=== PATIENT | female | born 1995 | race Caucasian/White ===

== ENCOUNTER → 2016-06-07 | Outpatient (CLI) | payer BC | END | disposition home or self-care (01) | LOC: MW.CHOBGYN 14:21 | PROVIDERS: ATTEND Obstetrics & Gynecology | DX: Z34.90 Encounter for supervision of normal pregnancy, unspecified, unspecified trimester (principal) | CPT/HCPCS: 81003 ==

== ENCOUNTER → 2016-07-05 | Outpatient (CLI) | payer BC ==
--- NOTE | 2016-07-05 17:11 | US ---
Examination: Greater than 14 weeks transabdominal ultrasound with color Doppler and M-mode evaluatio n. HISTORY: FINDINGS: LMP is 02/28/2016 EVALUATION: Anterior placenta with a breech lie and grade 1. Visually amniotic fluid is within normal limits. Three-vessel cord is seen. Ventricles are within normal limits. Nuchal fold thickness is 3 mm. Four chamber heart is noted. Heart rate is 148 beats per minute. BIOMETRY AND GESTATIONAL AGE: Biparietal diameter 3.9 cm. The abdominal circumference measures 12 cm. The femoral length is 2.5 cm with head circumference of 14.4 cm. Gestational age is 17 weeks and 4 days. The expected date of de livery is approximately 12/09/2016. Fetus weight is 205 grams. Overall the fetus is within the 14th percentile. Other detail anatomy summarized into PACs sheet after the images. No anatomical anomalies. IMPRESSION: Single active IU with breech fetus. Anterior placenta with grade 1, no placenta previa. No anomalies are seen. Amniotic fluid appears within normal limits.
== END ==
LOC: MW.US 13:00
PROVIDERS: ATTEND Obstetrics & Gynecology
DX: Z34.92 Encounter for supervision of normal pregnancy, unspecified, second trimester (principal); Z3A.17 17 weeks gestation of pregnancy
CPT/HCPCS: 36415; 76805; 76805-26; 81003; 82105; 82677; 84702; 85027; 86336; 86592; 86762; 86850; 86900; 86901; 87086; 87340; 87389

== ENCOUNTER → 2016-08-02 | Outpatient (CLI) | payer BC | LOC: MW.CHOBGYN 13:18 | PROVIDERS: ATTEND Obstetrics & Gynecology | DX: Z34.90 Encounter for supervision of normal pregnancy, unspecified, unspecified trimester (principal) | CPT/HCPCS: 81003 ==

== ENCOUNTER 2016-12-04 23:11 | Inpatient (IN) | payer BC ==
[2016-12-04] MEDS ORDERED: Lactated Ringers 1,000 ML IV SCH (23:45)
[2016-12-04] MEDS ORDERED: Oxytocin/Lactated Ringers 30 UNIT/500 ML BAG IV SCH (23:45)
[2016-12-04] MEDS ORDERED: Nalbuphine 10 MG/1 ML Vial IVPUSH PRN (23:55)
[2016-12-04] MEDS ORDERED: Butorphanol 1 MG/ML SDV IVPUSH PRN (23:55)
[2016-12-04] MEDS ORDERED: Water For Irrigation,Sterile 1,000 ML Container IRR PRN (23:55)
[2016-12-04] MEDS ORDERED: Carboprost Tromethamine 250 MCG/1 ML Amp IM PRN (23:55)
[2016-12-04] MEDS ORDERED: Misoprostol 200 MCG Tab PO PRN (23:55)
[2016-12-04] MEDS ORDERED: Sodium Chloride 0.9% 2.5 ML Syringe FLUSH PRN (23:55)
[2016-12-04] MEDS ORDERED: Methylergonovine 0.2 MG/1 ML Amp IM PRN (23:55)
[2016-12-04] MEDS ORDERED: Sodium Chloride 0.9% 10 ML Syringe FLUSH PRN (23:55)
[2016-12-04] MEDS ORDERED: Lidocaine 1% 50 ML MDV INJECT PRN (23:55)
[2016-12-05] MEDS ORDERED: ePHEDrine 50 MG/ML SDV ONE (00:59)
[2016-12-05] MEDS ORDERED: fentaNYL 100 MCG/2 ML SDV ONE (00:59)
[2016-12-05] MEDS ORDERED: Ropivacaine HCl/PF 0 ML ONE (01:00)
[2016-12-05] MEDS ORDERED: Ropivacaine 0.2% 2 MG/ML 100 ML Bag EPIDUR ONE (01:00)
[2016-12-05] MEDS ORDERED: Ropivacaine 0.2% 2 MG/ML 20 ML SDV ONE (01:00)
--- NOTE | 2016-12-05 01:05 | PCM.LDHP ---
L&D History of Present Illness - General Date of Service: 12/05/16 Admit Problem/Dx: Patient Status Order with Admit Dx/Problem 12/04/16 23:55 Patient Status [ADT] Routine Admission Diagnosis/Problem Admission Diagnosis/Problem Source of Information: Patient History Limitations: Reports: No Limitations - History of Present Illness Improves with: Reports: None Worsens with: Reports: None Associated Symptoms: Reports: N - Related Data Allergies/Adverse Reactions: Allergies Allergy/AdvReac Type Severity Reaction Status Date / Time No Known Allergies Allergy Verified 09/03/13 18:14 Past Medical History Gastrointestinal History: Reports: None Psychiatric History: Reports: Depression - Infectious Disease History Infectious Disease History: Reports: None - Past Surgical History Head Surgeries/Procedures: Reports: None GI Surgical History: Reports: Appendectomy Social & Family History - Family History HEENT: Reports: None Oncologic: Reports: Ovarian Other Oncologic Family History: grandmother - Alcohol Use Days Per Week of Alcohol Use: 0 - Recreational Drug Use Recreational Drug Use: No H&P Review of Systems - Review of Systems: Review Of Systems: See Below General: Reports: No Symptoms HEENT: Reports: No Symptoms Pulmonary: Reports: No Symptoms Cardiovascular: Reports: No Symptoms Gastrointestinal: Reports: No Symptoms Genitourinary: Reports: No Symptoms Musculoskeletal: Reports: No Symptoms Skin: Reports: No Symptoms Psychiatric: Reports: No Symptoms Neurological: Reports: No Symptoms Hematologic/Lymphatic: Reports: No Symptoms Immunologic: Reports: No Symptoms L&D Exam - Exam Exam: See Below - Vital Signs Weight: 75.296 kg - OB Specific Fundal Height In cm: 37 Contraction Intensity: Moderate Movement: Active Heart Tones: Present Heart Rate (FHR) Variability: Moderate (6-25 bmp) Presentation: Vertex - Granados Score Granados Score Cervix Position: Anterior Granados Score Consistency: Soft Granados Score Effacement: 51-70% Granados Score Dilation: > 5 cm Granados Score 's Station: -1 ,0 Garnados Score Total: 11 - Exam General: Alert, Oriented HEENT: PERRLA, Conjunctiva Clear, EACs Clear, EOMI, Hearing Intact, Mucosa Moist & [place], Nares Patent, Normal Nasal Septum, Posterior Pharynx Clear, TMs Clear Neck: Supple, Trachea Midline Lungs: Clear to Auscultation, Normal Respiratory Effort Cardiovascular: Regular Rate, Regular Rhythm GI/Abdominal Exam: Normal Bowel Sounds, Soft, Non-Tender, No Organomegaly, No Distention, No Abnormal Bruit, No Mass, Pelvis Stable Rectal Exam: Normal Exam, Normal Rectal Tone Genitourinary: Normal external exam, Normal bimanual exam, Normal speculum exam Back Exam: Normal Inspection, Full Range of Motion Extremities: Normal Inspection, Normal Range of Motion, Non-Tender, No Pedal Edema, Normal Capillary Refill Skin: Warm, Dry, Intact Neurological: Cranial Nerves Intact, Reflexes Equal Bilateral Psychiatric: Alert, Normal Affect, Normal Mood - Patient Data Lab Results Last 24 hrs: Laboratory Results - last 24 hr 12/04/16 Range/Units 00:17 WBC 12.22 H (4.0-11.0) K/uL RBC 4.17 L (4.30-5.90) M/uL Hgb 10.8 L (12.0-16.0) g/dL Hct 33.5 L (36.0-46.0) % MCV 80.3 (80.0-98.0) fL MCH 25.9 L (27.0-32.0) pg MCHC 32.2 (31.0-37.0) g/dL RDW Std Deviation 44.7 (28.0-62.0) fl RDW Coeff of Luis Eduardo 15 (11.0-15.0) % Plt Count 260 (150-400) K/uL MPV 10.80 (7.40-12.00) fL Nucleated RBC % 0.0 /100WBC Nucleated RBCs # 0 K/uL Result Diagrams: 12/04/16 00:17 Problem List Initiated/Reviewed/Updated: Yes Orders Last 24hrs: Active Orders 24 hr Category Date Time Status Patient Status [ADT] Routine ADT 12/04/16 23:55 Active Heart Tones [RC] CONTINUOUS Care 12/04/16 23:55 Active Non Stress Test [RC] PER UNIT ROUTINE Care 12/04/16 23:55 Active May Shower [RC] ASDIRECTED Care 12/04/16 23:55 Active Notify Provider [RC] PRN Care 12/04/16 23:55 Active Up ad Shira [RC] ASDIRECTED Care 12/04/16 23:55 Active Vaginal Exam [RC] PRN Care 12/04/16 23:55 Active Vital Signs [RC] PER UNIT ROUTINE Care 12/04/16 23:55 Active Clear Liquid Diet [DIET] Diet 12/05/16 Breakfast Active TYPE AND SCREEN [BBK] Routine Lab 12/04/16 00:17 Received Butorphanol [Stadol] Med 12/04/16 23:55 Active 1 mg IVPUSH Q1H PRN Carboprost Tromethamine [Hemabate DS] Med 12/04/16 23:55 Active 250 mcg IM ASDIRECTED PRN Lactated Ringers [Ringers, Lactated] 1,000 ml Med 12/04/16 23:45 Active IV ASDIRECTED Lidocaine 1% [Xylocaine 1%] Med 12/04/16 23:55 Active 50 ml INJECT .ONCE PRN Methylergonovine [Methergine] Med 12/04/16 23:55 Active 0.2 mg IM ASDIRECTED PRN Misoprostol [Cytotec] Med 12/04/16 23:55 Active 200 mcg PO .ONCE PRN Nalbuphine [Nubain] Med 12/04/16 23:55 Active 10 mg IVPUSH Q1H PRN Sodium Chloride 0.9% [Saline Flush] Med 12/04/16 23:55 Active 10 ml FLUSH ASDIRECTED PRN Sodium Chloride 0.9% [Saline Flush] Med 12/04/16 23:55 Active 2.5 ml FLUSH ASDIRECTED PRN Water For Irrigation,Sterile [Sterile Water for Med 12/04/16 23:55 Active Irrigation] 1,000 ml IRR ASDIRECTED PRN Scalp Electrode [WOMSER] Per Unit Routine Oth 12/04/16 23:55 Ordered Peripheral IV Insertion Adult [OM.PC] Routine Oth 12/04/16 23:55 Ordered Resuscitation Status Routine Resus Stat 12/04/16 23:55 Ordered Medication Orders Butorphanol Tartrate (Stadol) 1 mg IVPUSH Q1H PRN PRN Reason: Pain Carboprost Tromethamine (Hemabate Ds) 250 mcg IM ASDIRECTED PRN PRN Reason: Post Hemorrhage Lactated Ringer's (Ringers, Lactated) 1,000 mls @ 150 mls/hr IV ASDIRECTED [place] Lidocaine HCl (Xylocaine 1%) 50 ml INJECT .ONCE PRN PRN Reason: Laceration repair Methylergonovine Maleate (Methergine) 0.2 mg IM ASDIRECTED PRN PRN Reason: Post Hemorrhage Misoprostol (Cytotec) 200 mcg PO .ONCE PRN PRN Reason: Post Hemorrhage Nalbuphine HCl (Nubain) 10 mg IVPUSH Q1H PRN PRN Reason: Pain (severe 7-10) Sodium Chloride (Saline Flush) 10 ml FLUSH ASDIRECTED PRN PRN Reason: Keep Vein Open Sodium Chloride (Saline Flush) 2.5 ml FLUSH ASDIRECTED PRN PRN Reason: Keep Vein Open Sterile Water (Sterile Water For Irrigation) 1,000 ml IRR ASDIRECTED PRN PRN Reason: delivery Assessment/Plan Comment:: IUp 40 wks in active labor
[2016-12-05] MEDS ORDERED: Ibuprofen 400 MG Tab PO PRN (01:32)
[2016-12-05] MEDS ORDERED: Bisacodyl 10 MG Supp RECTAL PRN (01:32)
[2016-12-05] MEDS ORDERED: Witch Hazel Medicated Pads 40/Jar TOP PRN (01:32)
[2016-12-05] MEDS ORDERED: Ibuprofen 800 MG Tab PO PRN (01:32)
[2016-12-05] MEDS ORDERED: Docusate Sodium 100 MG Cap PO PRN (01:32)
[2016-12-05] MEDS ORDERED: Benzocaine/Menthol 20%-0.5% Spray 78 GM Cannister TOP PRN (01:32)
[2016-12-05] MEDS ORDERED: oxyCODONE 5 MG Tab PO PRN (01:32)
[2016-12-05] MEDS ORDERED: Acetaminophen 500 MG Tab PO PRN ×2 (01:32)
[2016-12-05] MEDS ORDERED: Lanolin 100% Cream 7 GM Tube TOP PRN (01:32)
--- NOTE | 2016-12-05 02:19 | PCM.PREANE ---
Preanesthetic Assessment - Procedure Proposed Procedure: labor epidural - Anesthesia/Transfusion/Family Hx Anesthesia History: Prior Anesthesia Without Reaction Family History of Anesthesia Reaction: No Transfusion History: No Prior Transfusion(s) Additional History: appendectomy and previous epidural - Review of Systems General: No Symptoms Pulmonary: No Symptoms Cardiovascular: No Symptoms Gastrointestinal: No Symptoms Neurological: No Symptoms Other: Reports: None - Physical Assessment Height: 1.68 m Weight: 75.296 kg ASA Class: 2 Mental Status: Alert & Oriented x3 Dentition: Reports: Normal Dentition Thyro-Mental Finger Breadths: 3 Mouth Opening Finger Breadths: 3 ROM/Head Extension: Full Lungs: Clear to Auscultation Cardiovascular: Regular Rate - Lab Values: Laboratory Last Values WBC 12.22 K/uL (4.0-11.0) H 12/04/16 00:17 RBC 4.17 M/uL (4.30-5.90) L 12/04/16 00:17 Hgb 10.8 g/dL (12.0-16.0) L 12/04/16 00:17 Hct 33.5 % (36.0-46.0) L 12/04/16 00:17 MCV 80.3 fL (80.0-98.0) 12/04/16 00:17 MCH 25.9 pg (27.0-32.0) L 12/04/16 00:17 MCHC 32.2 g/dL (31.0-37.0) 12/04/16 00:17 RDW Std Deviation 44.7 fl (28.0-62.0) 12/04/16 00:17 RDW Coeff of Luis Eduardo 15 % (11.0-15.0) 12/04/16 00:17 Plt Count 260 K/uL (150-400) 12/04/16 00:17 MPV 10.80 fL (7.40-12.00) 12/04/16 00:17 Nucleated RBC % 0.0 /100WBC 12/04/16 00:17 Nucleated RBCs # 0 K/uL 12/04/16 00:17 Blood Type O POSITIVE 12/05/16 00:17 Antibody Screen NEGATIVE 12/05/16 00:17 - Allergies Allergies/Adverse Reactions: Allergies Allergy/AdvReac Type Severity Reaction Status Date / Time No Known Allergies Allergy Verified 09/03/13 18:14 - Blood Blood Available: Yes Product(s) Available: PRBC - Anesthesia Plan Pre-Op Medication Ordered: None - Acknowledgements Anesthesia Type Planned: Epidural Pt an Appropriate Candidate for the Planned Anesthesia: Yes Alternatives and Risks of Anesthesia Discussed w Pt/Guardian: Yes Pt/Guardian Understands and Agrees with Anesthesia Plan: Yes PreAnesthesia Questionnaire Gastrointestinal History: Reports: None Psychiatric History: Reports: Depression - Infectious Disease History Infectious Disease History: Reports: None - Past Surgical History Head Surgeries/Procedures: Reports: None GI Surgical History: Reports: Appendectomy - SUBSTANCE USE Days Per Week of Alcohol Use: 0 Recreational Drug Use History: No - CURRENT (IN HOUSE) MEDS Current Meds: Current Medications Acetaminophen (Tylenol Extra Strength) 500 mg PO Q4H PRN PRN Reason: Pain Acetaminophen (Tylenol Extra Strength) 1,000 mg PO Q4H PRN PRN Reason: Pain Benzocaine/Menthol (Dermoplast Pain Relief 20%-0.5% [place]) 78 gm TOP ASDIRECTED PRN PRN Reason: Perineal Comfort Measure Bisacodyl (Dulcolax) 10 mg RECTAL .ONCE PRN PRN Reason: Constipation Butorphanol Tartrate (Stadol) 1 mg IVPUSH Q1H PRN PRN Reason: Pain Carboprost Tromethamine (Hemabate Ds) 250 mcg IM ASDIRECTED PRN PRN Reason: Post Hemorrhage Docusate Sodium (Colace) 100 mg PO BID PRN PRN Reason: Constipation Emollient Ointment (Lansinoh Hpa) 0 gm TOP ASDIRECTED PRN PRN Reason: Sore Nipples Lactated Ringer's (Ringers, Lactated) 1,000 mls @ 150 mls/hr IV ASDIRECTED [place] Ibuprofen (Motrin) 400 mg PO Q4H PRN PRN Reason: Pain Ibuprofen (Motrin) 800 mg PO Q6H PRN PRN Reason: Pain Lidocaine HCl (Xylocaine 1%) 50 ml INJECT .ONCE PRN PRN Reason: Laceration repair Methylergonovine Maleate (Methergine) 0.2 mg IM ASDIRECTED PRN PRN Reason: Post Hemorrhage Last Admin: 12/05/16 01:33 Dose: 0.2 mg Misoprostol (Cytotec) 200 mcg PO .ONCE PRN PRN Reason: Post Hemorrhage Nalbuphine HCl (Nubain) 10 mg IVPUSH Q1H PRN PRN Reason: Pain (severe 7-10) Oxycodone HCl (Oxycodone) 5 mg PO Q2H PRN PRN Reason: Pain Sodium Chloride (Saline Flush) 10 ml FLUSH ASDIRECTED PRN PRN Reason: Keep Vein Open Sodium Chloride (Saline Flush) 2.5 ml FLUSH ASDIRECTED PRN PRN Reason: Keep Vein Open Sterile Water (Sterile Water For Irrigation) 1,000 ml IRR ASDIRECTED PRN PRN Reason: delivery Brooke Bowman (Tucks) 1 pad TOP ASDIRECTED PRN PRN Reason: comfort care Discontinued Medications Ephedrine Sulfate (Ephedrine Sulfate) Confirm Administered Dose 50 mg .ROUTE .STK-MED ONE Stop: 12/05/16 01:00 Fentanyl (Sublimaze) Confirm Administered Dose 300 mcg .ROUTE .STK-MED ONE Stop: 12/05/16 01:00 Oxytocin/Lactated Ringer's (Pitocin In Lr 30 Units/500 Ml) 30 unit in 500 mls @ 999 mls/hr IV TITRATE SE[place]OUR; 999 MUNITS/MIN PRN Reason: Protocol Stop: 12/05/16 00:16 Last Admin: 12/05/16 01:24 Dose: 999 munits/min, 999 mls/hr Ropivacaine (Naropin 0.2%) Confirm Administered Dose 100 mls @ as directed .ROUTE .STK-MED ONE Stop: 12/05/16 01:01 Ropivacaine (Naropin 0.2%) Confirm Administered Dose 20 ml .ROUTE .STK-MED ONE Stop: 12/05/16 01:01
--- NOTE | 2016-12-05 02:27 | PCM.PRNOTE ---
- Free Text/Narrative Note: requested to place epidural for labor pain. patient cervix dilated to 7cm. discussed placement including risks and expectations. these include nerve pain, nerve damage bleeding infection and unsuccessful epidural. pt agrees. sitting up , sterile betadine prep times three with sterile drape. 1% lido SQ at L3. os times 1,needle redirected, KIYA saline at approximately 6 cm. catheter placed easily taped at 10 cm. no heme, no parasthesia. test dose 3 ml 1.5% lidocaine with 1:200,000 epinephrine given with no reaction. Bolus of 100 MCG fentanyl given with 5 ml 0.2% ropivicaine. patient feels urge to push, baby delivered within 5 minutes after. follow up 30 minutes after, patient able to move legs, bp stable
--- NOTE | 2016-12-05 14:57 | PCM48HPAN ---
Post Anesthesia Note - EVALUATION WITHIN 48HRS OF ANESTHETIC Vital Signs in Normal Range: Yes Patient Participated in Evaluation: Yes Respiratory Function Stable: Yes Airway Patent: Yes Cardiovascular Function Stable: Yes Hydration Status Stable: Yes Pain Control Satisfactory: Yes Nausea and Vomiting Control Satisfactory: Yes Mental Status Recovered: Yes
[2016-12-06 08:36] VITALS: BP 119/80
--- NOTE | 2016-12-06 08:43 | PCM.PNPP ---
- General Info Date of Service: 12/06/16 Functional Status: Reports: Pain Controlled - Review of Systems General: Reports: No Symptoms HEENT: Reports: No Symptoms Pulmonary: Reports: No Symptoms Cardiovascular: Reports: No Symptoms Gastrointestinal: Reports: No Symptoms Genitourinary: Reports: No Symptoms Musculoskeletal: Reports: No Symptoms Skin: Reports: No Symptoms Neurological: Reports: No Symptoms Psychiatric: Reports: No Symptoms - General Info Date of Service: 12/06/16 - Patient Data Vital Signs - Most Recent: Last Vital Signs Temp 36.6 C 12/06/16 08:16 Pulse 112 H 12/06/16 08:15 Resp 18 12/06/16 08:15 BP 119/80 12/06/16 08:15 Pulse Ox 99 12/06/16 08:15 Weight - Most Recent: 75.296 kg Lab Results - Last 24 Hours: Laboratory Results - last 24 hr 12/06/16 Range/Units 05:32 Hgb 10.6 L (12.0-16.0) g/dL Hct 32.8 L (36.0-46.0) % Med Orders - Current: Current Medications Acetaminophen (Tylenol Extra Strength) 500 mg PO Q4H PRN PRN Reason: Pain Acetaminophen (Tylenol Extra Strength) 1,000 mg PO Q4H PRN PRN Reason: Pain Benzocaine/Menthol (Dermoplast Pain Relief 20%-0.5% [place]) 78 gm TOP ASDIRECTED PRN PRN Reason: Perineal Comfort Measure Last Admin: 12/05/16 08:26 Dose: 1 spray Bisacodyl (Dulcolax) 10 mg RECTAL .ONCE PRN PRN Reason: Constipation Butorphanol Tartrate (Stadol) 1 mg IVPUSH Q1H PRN PRN Reason: Pain Carboprost Tromethamine (Hemabate Ds) 250 mcg IM ASDIRECTED PRN PRN Reason: Post Hemorrhage Docusate Sodium (Colace) 100 mg PO BID PRN PRN Reason: Constipation Emollient Ointment (Lansinoh Hpa) 0 gm TOP ASDIRECTED PRN PRN Reason: Sore Nipples Lactated Ringer's (Ringers, Lactated) 1,000 mls @ 150 mls/hr IV ASDIRECTED [place] Ibuprofen (Motrin) 400 mg PO Q4H PRN PRN Reason: Pain Ibuprofen (Motrin) 800 mg PO Q6H PRN PRN Reason: Pain Last Admin: 12/06/16 08:16 Dose: 800 mg Lidocaine HCl (Xylocaine 1%) 50 ml INJECT .ONCE PRN PRN Reason: Laceration repair Methylergonovine Maleate (Methergine) 0.2 mg IM ASDIRECTED PRN PRN Reason: Post Hemorrhage Last Admin: 12/05/16 01:33 Dose: 0.2 mg Misoprostol (Cytotec) 200 mcg PO .ONCE PRN PRN Reason: Post Hemorrhage Nalbuphine HCl (Nubain) 10 mg IVPUSH Q1H PRN PRN Reason: Pain (severe 7-10) Oxycodone HCl (Oxycodone) 5 mg PO Q2H PRN PRN Reason: Pain Sodium Chloride (Saline Flush) 10 ml FLUSH ASDIRECTED PRN PRN Reason: Keep Vein Open Sodium Chloride (Saline Flush) 2.5 ml FLUSH ASDIRECTED PRN PRN Reason: Keep Vein Open Sterile Water (Sterile Water For Irrigation) 1,000 ml IRR ASDIRECTED PRN PRN Reason: delivery Brooke Bowman (Tucks) 1 pad TOP ASDIRECTED PRN PRN Reason: comfort care Discontinued Medications Ephedrine Sulfate (Ephedrine Sulfate) Confirm Administered Dose 50 mg .ROUTE .STK-MED ONE Stop: 12/05/16 01:00 Fentanyl (Sublimaze) Confirm Administered Dose 300 mcg .ROUTE .STK-MED ONE Stop: 12/05/16 01:00 Oxytocin/Lactated Ringer's (Pitocin In Lr 30 Units/500 Ml) 30 unit in 500 mls @ 999 mls/hr IV TITRATE SE[place]; 999 MUNITS/MIN PRN Reason: Protocol Stop: 12/05/16 00:16 Last Admin: 12/05/16 01:24 Dose: 999 munits/min, 999 mls/hr Ropivacaine (Naropin 0.2%) Confirm Administered Dose 100 mls @ as directed .ROUTE .STK-MED ONE Stop: 12/05/16 01:01 Ropivacaine (Naropin 0.2%) Confirm Administered Dose 20 ml .ROUTE .STK-MED ONE Stop: 12/05/16 01:01 Ropivacaine (Naropin 0.2%) 0 mg EPIDUR .STK-MED ONE Stop: 12/05/16 01:01 - Infant Interaction Infant Disposition, : Show Low in Room with Family Infant Interaction: Holding Feeding: Attempted ; Nursed Fair/Poor Support Person: , Significant Other - Recovery Exam Fundal Tone: Firm Fundal Level: At Umbilicus Fundal Placement: Midline Lochia Amount: Scant Lochia Color: Rubra/Red Perineum Description: Intact, Minimal Bruising/Swelling Episiotomy/Laceration: None Bladder Status: Nonpalpable, Voiding Urinary Elimination: Voided - Exam General: Alert, Oriented HEENT: Pupils Equal Neck: Supple Lungs: Clear to Auscultation, Normal Respiratory Effort Cardiovascular: Regular Rate, Regular Rhythm GI/Abdominal Exam: Normal Bowel Sounds, Soft, Non-Tender, No Organomegaly, No Distention, No Abnormal Bruit, No Mass, Pelvis Stable Extremities: Normal Inspection, Normal Range of Motion, Non-Tender, No Pedal Edema, Normal Capillary Refill Skin: Warm, Dry, Intact Wound/Incisions: Healing Well Neurological: No New Focal Deficit Psy/Mental Status: Alert, Normal Affect, Normal Mood - Problem List Review Problem List Initiated/Reviewed/Updated: Yes - Assessment Assessment:: Status post normal spontaneous vaginal delivery the patient is going home today - Plan Plan:: IUp 40 wks in active labor
--- NOTE | 2016-12-06 10:53 | OR ---
SURGEON: Good Davila MD DATE OF DELIVERY: 12/05/2016 DELIVERY NOTE: Alka is a 21-year-old patient. She is para 1-0-0-1. She is 40 weeks, term . She is followed in our clinic primarily by me. She had no issue. Her GBS status was negative. She is admitted in active labor today. At the time of admission, she is 5 cm, complete vertex, intact, and having moderate contraction. heart rate was category I. The patient had epidural anesthesia for labor analgesia. She progressed rather fast, and she was able to accomplish normal spontaneous vaginal delivery, female fetus. score reported to be 8 and 9. The weight is not available. The placenta delivered spontaneous, complete, and intact without any problem. There was no labial or perineal laceration. Episiotomy was not done and was not needed. Estimated blood loss was 250 to 300 mL. heart rate was category I through the entire process of labor, and there was no complication. BENJAMIN / ARIANNA /[id number]
== END 2016-12-06 10:50 | disposition home or self-care (01) | DRG 560 ==
LOC: MW.OBCHECK 23:11 → MW.OB 23:40 → MW.OBCHECK 23:55 → MW.OB 23:55 → OBSVTOIN 12-05 01:24
PROVIDERS: ADMIT Obstetrics & Gynecology; ATTEND Obstetrics & Gynecology
PROC: 10E0XZZ Delivery of Products of Conception, External Approach (ICD-10-PCS; principal; 2016-12-05)
DX: O80 Encounter for full-term uncomplicated delivery (principal); Z3A.40 40 weeks gestation of pregnancy; Z37.0 Single live birth
CPT/HCPCS: 01967; 36415; 59025; 85014; 85018; 85027; 86850; 86900; 86901; A9270-GY; J0595; J2210; J2795; J3010

== ENCOUNTER 2018-06-29 05:45 | Inpatient (IN) | payer BC ==
[2018-06-29] MEDS ORDERED: Oxytocin/0.9 % Sodium Chloride 30 UNIT/500 ML BAG ONE (06:25)
[2018-06-29] MEDS ORDERED: oxyCODONE 5 MG Tab PO PRN (06:38)
[2018-06-29] MEDS ORDERED: Benzocaine/Menthol 20%-0.5% Spray 78 GM Cannister TOP PRN (06:38)
[2018-06-29] MEDS ORDERED: Bisacodyl 10 MG Supp RECTAL PRN (06:38)
[2018-06-29] MEDS ORDERED: Acetaminophen 500 MG Tab PO PRN ×2 (06:38)
[2018-06-29] MEDS ORDERED: Ibuprofen 400 MG Tab PO PRN (06:38)
[2018-06-29] MEDS ORDERED: Witch Hazel Medicated Pads 40/Jar TOP PRN (06:38)
[2018-06-29] MEDS ORDERED: Docusate Sodium 100 MG Cap PO PRN (06:38)
[2018-06-29] MEDS ORDERED: Lanolin 100% Cream 7 GM Tube TOP PRN (06:38)
[2018-06-29] MEDS ORDERED: Lidocaine 1% 50 ML MDV ONE (07:03)
[2018-06-29] MEDS: buPROPion 150 MG Tab.ER PO SCH (10:21)
--- NOTE | 2018-06-29 13:33 | HP ---
DATE OF : 1995 PRIMARY CARE PHYSICIAN: None PCP CHIEF COMPLAINT: No care, home delivery. HISTORY OF PRESENT ILLNESS: This is a 23-year-old female. She is G4, P 3-0-0-3. She did not have any care with this . Her older child is less than 18 months old. She states that she had a hard time accepting the , and she also does suffer from depression, which is untreated, and she did not have any care with this . She has had care with her prior deliveries. She denies any traumatic event or other reason for not getting care. Her is present and supportive. She denies any abuse issues. She had spontaneous onset of labor at home. Delivery occurred rapidly and subsequently she delivered the placenta in the bathtub. EMT was called and transferred mom and baby to the hospital where she presents for evaluation. She states that she had fairly heavy bleeding. She feels like she lost about a liter of blood at home, after that her bleeding has subsided to some degree. She denies any headache or visual changes. She is blood type O positive. PAST MEDICAL HISTORY: Negative for chronic illness. She does have a history of depression. She states that she was placed on a medication at one time, but this did not seem to help. PAST SURGICAL HISTORY: Appendectomy at age 12. ALLERGIES: None known. MEDICATIONS: vitamins. SOCIAL HISTORY: She is , sexually active. She drinks socially when she is not . She smokes when she is not , but she has been able to quit during the . She denies use of any street drugs. FAMILY HISTORY: Her grandmother had cervical cancer, otherwise noncontributory. She denies any genetic disorders in her family. PHYSICAL EXAMINATION: VITAL SIGNS: Blood pressure is 120/70, pulse is 102. GENERAL: She is alert and oriented. She appears in no acute distress, although she appears somewhat anxious. NECK: Supple without lymphadenopathy or thyromegaly. LUNGS: Clear bilaterally. CV: Regular rate without murmur. ABDOMEN: Soft. Fundus is very firm, 2 cm below the umbilicus. EXTREMITIES: Show trace edema. : External genitalia reveals a second-degree perineal laceration, which will be repaired. ASSESSMENT AND PLAN: Term delivery at home with no care. We will proceed with routine laboratory studies. Her delivery in 2017 was in the hospital. We do know her blood type, which is O positive lab. We will get a CBC, rubella titer, hepatitis B surface antigen, hepatitis C antibody, RPR. I have discussed risks and benefits of treating depression. She understands that she needs to be treated. It sounds that she may have been started on SSRI previously that did not work well for her. I therefore recommended consideration of Wellbutrin. I explained to her that Wellbutrin overall is safe with , and she has agreed to start Wellbutrin, and I will arrange for and encourage her to seek care and followup, particularly related to her depression, which I feel is the reason for her not seeking care during this . In the meantime, we will admit for a routine care. MARY KELLER /[id number]
--- NOTE | 2018-06-29 14:14 | OR ---
SURGEON: Mervat Duval M.D. DATE OF PROCEDURE: 06/29/2018 PREOPERATIVE DIAGNOSES: 1. Second-degree perineal laceration. 2. Unattended delivery at home. POSTOPERATIVE DIAGNOSES: 1. Second-degree perineal laceration. 2. Unattended delivery at home. PROCEDURE: 1. Pelvic examination with removal of amniotic membranes. 2. Repair of second-degree laceration. ANESTHESIA: Local. ESTIMATED BLOOD LOSS: EBL for this procedure was less than 50 mL. FINDINGS: There were amniotic membranes trailing from the cervix, which were easily removed with a ring forceps. There was a large clot in the lower uterine segment, which was manually removed. The second-degree perineal laceration was present and was repaired. There were no other periurethral, vaginal sidewall, cervical, or rectal lacerations. COMPLICATIONS: None known. DISPOSITION: Stable in LDR. BRIEF HISTORY: This is a 23-year-old female, G4, now P4, with home delivery, who presented to Labor and Delivery . She had no care. It was not necessarily an intentional home delivery, but she had not sought any care during this . In discussion with the patient, this was apparently due to severe depression still related to her most recent delivery and difficulty with attachment to the . She reported losing approximately a liter of blood at home. She presented to Labor and Delivery. Her hemoglobin was 9.3, and she consented to pelvic examination for inspection and potential removal of any remaining amniotic membranes as well as evaluation and repair of the perineum. DESCRIPTION OF PROCEDURE: With the patient in dorsal lithotomy position, the pelvis was inspected. A speculum was placed into the vagina. The trailing amniotic membrane was grasped with a ring forceps and was easily removed. I did not see nor palpate any further tissue. In the lower uterine segment, there was a large clot that was removed. With fundal pressure, a few more clots were expressed. The uterus was firm, and there was no significant further bleeding. The speculum was removed. Attention was then turned to the perineum where 10 mL of 1% lidocaine was injected into the subcutaneous and deep perineal tissue. 3-0 Vicryl was utilized for running lock suture of the vaginal mucosa, deep running suture of the perineum, and subcuticular suture for the skin. Final sponge, needle, and instrument counts were correct. There were no complications. Mother and baby are in LDR in good condition. MARY KELLER /[id number]
[2018-06-29] MEDS: Ibuprofen 800 MG Tab PO PRN (16:05)
--- NOTE | 2018-06-30 07:59 | PCM.PNPP ---
<Sangita Chavez - Last Filed: 06/30/18 07:55> - General Info Date of Service: 06/30/18 Functional Status: Reports: Pain Controlled, Tolerating Diet, Ambulating, Urinating - Review of Systems General: Denies: Fever, Weakness, Fatigue Pulmonary: Denies: Shortness of Breath, Pleuritic Chest Pain, Cough Cardiovascular: Denies: Chest Pain, Palpitations, Dyspnea on Exertion Gastrointestinal: Denies: Abdominal Pain Genitourinary: Denies: Dysuria - General Info Date of Service: 06/30/18 - Patient Data Vital Signs - Most Recent: Last Vital Signs Temp 36.5 C 06/30/18 03:40 Pulse 77 06/30/18 03:40 Resp 16 06/30/18 03:40 BP 131/80 06/30/18 03:40 Pulse Ox 99 06/30/18 03:40 Weight - Most Recent: 62.596 kg Lab Results - Last 24 Hours: Laboratory Results - last 24 hr 06/29/18 06/30/18 Range/Units 06:48 04:40 Hgb 8.7 L (12.0-16.0) g/dL Hct 28.3 L (36.0-46.0) % Hep Bs Antigen Index < 0.1 (<1.0) INDEX Hep C Ab Index (GREG) 0.2 (<0.8) INDEX HIV 1&2 Ag/Ab, 4th Gen < 0.1 (<1.0) INDEX Rubella IgG Ab Index 32.5 IU/mL Med Orders - Current: Current Medications Acetaminophen (Tylenol Extra Strength) 500 mg PO Q4H PRN PRN Reason: Pain Acetaminophen (Tylenol Extra Strength) 1,000 mg PO Q4H PRN PRN Reason: Pain Benzocaine/Menthol (Dermoplast Pain Relief 20%-0.5% [place]) 78 gm TOP ASDIRECTED PRN PRN Reason: Perineal Comfort Measure Last Admin: 06/29/18 16:50 Dose: 1 can Bisacodyl (Dulcolax) 10 mg RECTAL ONETIME PRN PRN Reason: Constipation Bupropion HCl (Wellbutrin Xl) 150 mg PO DAILY [facility] Last Admin: 06/29/18 10:21 Dose: 150 mg Docusate Sodium (Colace) 100 mg PO BID PRN PRN Reason: Constipation Emollient Ointment (Lansinoh Hpa) 0 gm TOP ASDIRECTED PRN PRN Reason: Sore Nipples Ibuprofen (Motrin) 400 mg PO Q4H PRN PRN Reason: Pain Ibuprofen (Motrin) 800 mg PO Q6H PRN PRN Reason: Pain Last Admin: 06/29/18 16:05 Dose: 800 mg Oxycodone HCl (Oxycodone) 5 mg PO Q2H PRN PRN Reason: Pain Witch Gracie (Tucks) 1 pad TOP ASDIRECTED PRN PRN Reason: comfort care Last Admin: 06/29/18 16:50 Dose: 1 container Discontinued Medications Oxytocin/Sodium Chloride (Oxytocin 30 Unit/500 Ml-Ns) Confirm Administered Dose 30 unit in 500 mls @ as directed .ROUTE .STK-MED ONE Stop: 06/29/18 06:26 Last Admin: 06/29/18 06:30 Dose: 999 mls/hr Lidocaine HCl (Xylocaine 1%) Confirm Administered Dose 50 ml .ROUTE .STK-MED ONE Stop: 06/29/18 07:04 Last Admin: 06/29/18 08:06 Dose: 50 ml - Infant Interaction Disposition, : in Room with Family Interaction: Holding Infant Support Person: , Significant Other - Recovery Exam Fundal Tone: Firm Fundal Level: 1 Fingerbreadths Below Umbilicus Fundal Placement: Midline Lochia Amount: Scant Lochia Color: Rubra/Red Episiotomy/Laceration: Approximated Bladder Status: Voiding - Exam General: Alert, Oriented Neck: Supple Lungs: Clear to Auscultation, Normal Respiratory Effort Cardiovascular: Regular Rate, Regular Rhythm GI/Abdominal Exam: Normal Bowel Sounds, Soft, Non-Tender, No Distention, No Mass Extremities: Normal Inspection, Non-Tender, Normal Capillary Refill, Pedal Edema (trace) Skin: Warm, Dry, Intact - Problem List & Annotations (1) Vaginal delivery SNOMED Code(s): 687070099 Code(s): O80 - ENCOUNTER FOR FULL-TERM UNCOMPLICATED DELIVERY Status: Acute Current Visit: Yes - Problem List Review Problem List Initiated/Reviewed/Updated: Yes - Assessment Assessment:: PPD #1 s/p unattended delivery at home. Repair of 2nd Degree laceration. GBS status unknown. Patient was started on Wellbutrin. Will monitor mood closely. - Plan Plan:: Continue routine post- cares. Will monitor mood closely. <Mervat Duval - Last Filed: 06/30/18 08:06> - Patient Data Vital Signs - Most Recent: Last Vital Signs Temp 36.5 C 06/30/18 07:15 Pulse 92 06/30/18 07:15 Resp 17 06/30/18 07:15 BP 104/70 06/30/18 07:15 Pulse Ox 100 06/30/18 07:15 Lab Results - Last 24 Hours: Laboratory Results - last 24 hr 06/29/18 06/30/18 Range/Units 06:48 04:40 Hgb 8.7 L (12.0-16.0) g/dL Hct 28.3 L (36.0-46.0) % Hep Bs Antigen Index < 0.1 (<1.0) INDEX Hep C Ab Index (GREG) 0.2 (<0.8) INDEX HIV 1&2 Ag/Ab, 4th Gen < 0.1 (<1.0) INDEX Rubella IgG Ab Index 32.5 IU/mL Med Orders - Current: Current Medications Acetaminophen (Tylenol Extra Strength) 500 mg PO Q4H PRN PRN Reason: Pain Acetaminophen (Tylenol Extra Strength) 1,000 mg PO Q4H PRN PRN Reason: Pain Benzocaine/Menthol (Dermoplast Pain Relief 20%-0.5% [place]) 78 gm TOP ASDIRECTED PRN PRN Reason: Perineal Comfort Measure Last Admin: 06/29/18 16:50 Dose: 1 can Bisacodyl (Dulcolax) 10 mg RECTAL ONETIME PRN PRN Reason: Constipation Bupropion HCl (Wellbutrin Xl) 150 mg PO DAILY [facility] Last Admin: 06/29/18 10:21 Dose: 150 mg Docusate Sodium (Colace) 100 mg PO BID PRN PRN Reason: Constipation Emollient Ointment (Lansinoh Hpa) 0 gm TOP ASDIRECTED PRN PRN Reason: Sore Nipples Ibuprofen (Motrin) 400 mg PO Q4H PRN PRN Reason: Pain Ibuprofen (Motrin) 800 mg PO Q6H PRN PRN Reason: Pain Last Admin: 06/29/18 16:05 Dose: 800 mg Oxycodone HCl (Oxycodone) 5 mg PO Q2H PRN PRN Reason: Pain Witch Gracie (Tucks) 1 pad TOP ASDIRECTED PRN PRN Reason: comfort care Last Admin: 06/29/18 16:50 Dose: 1 container Discontinued Medications Oxytocin/Sodium Chloride (Oxytocin 30 Unit/500 Ml-Ns) Confirm Administered Dose 30 unit in 500 mls @ as directed .ROUTE .STK-MED ONE Stop: 06/29/18 06:26 Last Admin: 06/29/18 06:30 Dose: 999 mls/hr Lidocaine HCl (Xylocaine 1%) Confirm Administered Dose 50 ml .ROUTE .STK-MED ONE Stop: 06/29/18 07:04 Last Admin: 06/29/18 08:06 Dose: 50 ml - Problem List Review Problem List Initiated/Reviewed/Updated: Yes - My Orders Last 24 Hours: My Active Orders 06/29/18 09:00 buPROPion [Wellbutrin XL] 150 mg PO DAILY 06/30/18 Breakfast Regular Diet [DIET] - Assessment Assessment:: patient was seen and examined by me and I agree with above.
[2018-06-30] MEDS: buPROPion 150 MG Tab.ER PO SCH (10:08)
[2018-07-01 07:55] VITALS: BP 127/83
[2018-07-01] MEDS: Ibuprofen 800 MG Tab PO PRN (08:02)
[2018-07-01] MEDS: buPROPion 150 MG Tab.ER PO SCH (08:02)
--- NOTE | 2018-07-01 09:41 | PCM.DCSUM1 ---
Discharge Summary - Hospital Course Free Text/Narrative:: Pt feels ready to go hoome. She has no c/o. Starting Wellbutrin, and has counseling appt. Will see Dr Duval for 2 w f/u. - Discharge Data Discharge Date: 07/01/18 Discharge Disposition: Home, Self-Care 01 Condition: Good - Discharge Diagnosis/Problem(s) (1) Depression SNOMED Code(s): 40150020 ICD Code: F32.9 - MAJOR DEPRESSIVE DISORDER, SINGLE EPISODE, UNSPECIFIED Status: Acute Current Visit: Yes Qualifiers: Depression Type: unspecified Qualified Code(s): F32.9 - Major depressive disorder, single episode, unspecified - Patient Summary/Data Operative Procedure(s) Performed: vaginal delivery at home. PP evaluation. - Patient Instructions Diet: Regular Diet as Tolerated Activity: No Strenuous Activities, Rest and Relax Today (Pelvic rest for 6 weeks.) Driving: May Drive Today Showering/Bathing: May Shower Other/Special Instructions: pelvic rest fo 6 weeks. continue PNV while breast feeding. Can use OTC ibuprofen/tylenol as needed for pain - Discharge Plan *PRESCRIPTION DRUG MONITORING PROGRAM REVIEWED*: Not Applicable *COPY OF PRESCRIPTION DRUG MONITORING REPORT IN PATIENT PAULA: Not Applicable Prescriptions/Med Rec: buPROPion [buPROPion XL] 150 mg PO DAILY #30 tab.er Home Medications: Home Meds buPROPion [buPROPion XL] 150 mg PO DAILY #30 tab.er 06/30/18 [Rx] Referrals: [facility] [Outside] Mervat Duval MD [Physician] - 08/10/18 11:15 am (2 week follow-up with Dr Duval at [facility] 07/14/18 @ 1:30pm.) - Discharge Summary/Plan Comment DC Time >30 min.: No - General Info Date of Service: 07/01/18 Functional Status: Reports: Pain Controlled, Tolerating Diet, Ambulating - Review of Systems General: Reports: No Symptoms HEENT: Reports: No Symptoms Pulmonary: Reports: No Symptoms Cardiovascular: Reports: No Symptoms Gastrointestinal: Reports: No Symptoms Genitourinary: Reports: No Symptoms (Very little perineal pain.) Musculoskeletal: Reports: No Symptoms Psychiatric: Reports: Depression (She voices understanding of medications, counseling, and crisis intervention if needed.) - Patient Data Vitals - Most Recent: Last Vital Signs Temp 36.6 C 07/01/18 07:54 Pulse 74 07/01/18 07:54 Resp 17 07/01/18 07:54 BP 127/83 07/01/18 07:54 Pulse Ox 99 07/01/18 07:54 Weight - Most Recent: 62.596 kg Lab Results - Last 24 hrs: Laboratory Results - last 24 hr 06/29/18 Range/Units 06:48 RPR Non Reactive (NonRea<1:1) Med Orders - Current: Current Medications Acetaminophen (Tylenol Extra Strength) 500 mg PO Q4H PRN PRN Reason: Pain Acetaminophen (Tylenol Extra Strength) 1,000 mg PO Q4H PRN PRN Reason: Pain Benzocaine/Menthol (Dermoplast Pain Relief 20%-0.5% [place]) 78 gm TOP ASDIRECTED PRN PRN Reason: Perineal Comfort Measure Last Admin: 06/29/18 16:50 Dose: 1 can Bisacodyl (Dulcolax) 10 mg RECTAL ONETIME PRN PRN Reason: Constipation Bupropion HCl (Wellbutrin Xl) 150 mg PO DAILY [facility] Last Admin: 07/01/18 08:02 Dose: 150 mg Docusate Sodium (Colace) 100 mg PO BID PRN PRN Reason: Constipation Emollient Ointment (Lansinoh Hpa) 0 gm TOP ASDIRECTED PRN PRN Reason: Sore Nipples Last Admin: 06/30/18 10:08 Dose: 7 gram Ibuprofen (Motrin) 400 mg PO Q4H PRN PRN Reason: Pain Ibuprofen (Motrin) 800 mg PO Q6H PRN PRN Reason: Pain Last Admin: 07/01/18 08:02 Dose: 800 mg Oxycodone HCl (Oxycodone) 5 mg PO Q2H PRN PRN Reason: Pain Witch Gracie (Tucks) 1 pad TOP ASDIRECTED PRN PRN Reason: comfort care Last Admin: 06/29/18 16:50 Dose: 1 container Discontinued Medications Oxytocin/Sodium Chloride (Oxytocin 30 Unit/500 Ml-Ns) Confirm Administered Dose 30 unit in 500 mls @ as directed .ROUTE .STK-MED ONE Stop: 06/29/18 06:26 Last Admin: 06/29/18 06:30 Dose: 999 mls/hr Lidocaine HCl (Xylocaine 1%) Confirm Administered Dose 50 ml .ROUTE .STK-MED ONE Stop: 06/29/18 07:04 Last Admin: 06/29/18 08:06 Dose: 50 ml - Exam General: Reports: Alert, Oriented, Cooperative, No Acute Distress (Co- operative. Good eye contact and good conversation.) Lungs: Reports: Other (Breathing comfortably, non-labored) GI/Abdominal Exam: Other (Abdomen soft. Uterus firm.) Extremities: Normal Inspection
== END 2018-07-01 11:30 | disposition home or self-care (01) | DRG 560 ==
LOC: MW.OB 05:45
PROVIDERS: ADMIT Obstetrics & Gynecology; ATTEND Obstetrics & Gynecology
PROC: 10E0XZZ Delivery of Products of Conception, External Approach (ICD-10-PCS; principal; 2018-06-29)
PROC: 0UC97ZZ Extirpation of Matter from Uterus, Via Natural or Artificial Opening (ICD-10-PCS; principal; 2018-06-29)
PROC: 0KQM0ZZ Repair Perineum Muscle, Open Approach (ICD-10-PCS; principal; 2018-06-29)
DX: O70.1 Second degree perineal laceration during delivery (principal); O99.345 Other mental disorders complicating the puerperium; F53.0 Postpartum depression; O72.0 Third-stage hemorrhage
CPT/HCPCS: 36415; 82962; 85014; 85018; 85027; 86593; 86762; 86803; 86850; 86900; 86901; 87340; 87389; A9270-GY; J2001; J2590